=== PATIENT | male | born 2000 | race African-American/Black ===

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

== ENCOUNTER 2021-12-18 15:37 | Emergency (ER) | payer BC ==
--- NOTE | 2021-12-18 16:25 | RAD REPORT ---
EXAM DESCRIPTION: RAD - Knee Right 3 View - 12/18/2021 4:15 pm CLINICAL HISTORY: PAIN COMPARISON: No comparisons FINDINGS: No fracture, dislocation or periosteal reaction.Large joint effusion is present. No joint space narrowing. No foreign body or other soft tissue abnormality. IMPRESSION: Large right joint effusion with no acute bone finding. Clinical concerns for internal derangement or occult bony injury could be further assessed with MR im aging.
--- NOTE | 2021-12-18 16:48 | EDPHYS ---
Physician Documentation [facility] Name: Westley Hutchins Age: 21 yrs Sex: Male : 2000 Arrival Date: 12/18/2021 Time: 15:41 Bed 13 Private MD: ED Physician Leoncio Cheng HPI: 12/18 16:39 This 21 yrs old Black Male presents to ER via Ambulatory with complaints of Knee Pain. kb 16:39 The patient presents with pain, swelling. The complaints affect the right knee. kb Context: The problem was sustained at home, resulted from an unknown cause, the patient can fully bear weight, the patient is able to ambulate. Onset: The symptoms/episode began/occurred last week. Modifying factors: The symptoms are alleviated by nothing. the symptoms are aggravated by weight bearing, bending knee. Associated signs and symptoms: Pertinent positives: swelling, Pertinent negatives calf tenderness, fever, nausea, numbness, rash, tingling, vomiting, warmth, weakness. Treatment prior to arrival includes: no previous treatment. Severity of symptoms: At their worst the symptoms were moderate, in the emergency department the symptoms are unchanged. The patient has not experienced similar symptoms in the past. The patient has not recently seen a physician. Pt reports he had the flu last week with bodyaches, joint pain, malaise, etc. States most symptoms have gone away, but he is still having pain and swelling in right knee. Denies injury or trauma. Denies fever. Historical: - Allergies: 15:56 NKA; mb8 - Home Meds: 15:56 None [Active]; mb8 - PSHx: 15:56 Left arm sx; testicle; mb8 - Immunization history:: Adult Immunizations up to date. - Social history:: Smoking status: Patient reports the use of cigarette tobacco products. ROS: 16:38 Constitutional: Negative for fever, chills, and weight loss. kb 16:38 MS/extremity: Positive for pain, swelling, of the right knee. 16:38 All other systems are negative. Exam: 16:38 Constitutional: This is a well developed, well nourished patient who is awake, alert, kb and in no acute distress. Head/Face: Normocephalic, atraumatic. ENT: Moist Mucous membranes Cardiovascular: Regular rate and rhythm with a normal S1 and S2. No gallops, murmurs, or rubs. No pulse deficits. Respiratory: Respirations even and unlabored. No increased work of breathing. Talking in full sentences Abdomen/GI: Soft, non-tender. No distention Skin: Warm, dry with normal turgor. Normal color. Neuro: Awake and alert, GCS 15, oriented to person, place, time, and situation. Moves all extremities. Normal gait. Psych: Awake, alert, with orientation to person, place and time. Behavior, mood, and affect are within normal limits. 16:38 Musculoskeletal/extremity: Extremities: grossly normal except: noted in the right knee: pain, swelling, ROM: intact in all extremities, Circulation is intact in all extremities. Sensation intact. Weight bearing: able to fully bear weight. Vital Signs: 15:57 BP 125 / 81; Pulse 93; Resp 16; Temp 97.3; Pulse Ox 100% on R/A; Weight 90.26 kg; mb8 Height 6 ft. 1 in. (185.42 cm); Pain 7/10; 15:57 Body Mass Index 26.25 (90.26 kg, 185.42 cm) mb8 MDM: 15:55 Patient medically screened. kb 16:39 Data reviewed: vital signs, nurses notes. Data interpreted: Pulse oximetry: on room air kb is 100 %. Interpretation: normal. Counseling: I had a detailed discussion with the patient and/or guardian regarding: the historical points, exam findings, and any diagnostic results supporting the discharge/admit diagnosis, radiology results, the need for outpatient follow up, a orthopedic surgeon, to return to the emergency department if symptoms worsen or persist or if there are any questions or concerns that arise at home. 12/18 15:56 Order name: Knee Right 3 View XRAY; Complete Time: 16:26 kb Administered Medications: No medications were administered Disposition: 18:10 Co-signature as Attending Physician, Leoncio Cheng MD. rn Disposition Summary: 12/18/21 16:48 Discharge Ordered Location: Home Condition: Stable kb Diagnosis - Effusion, right knee kb Followup: kb - With: Emergency Department - When: As needed - Reason: Worsening of condition Followup: kb - With: Private Physician - When: 2 - 3 days - Reason: Recheck today's complaints, Continuance of care, Re-evaluation by your physician Discharge Instructions: - Discharge Summary Sheet kb - Knee Effusion, [id number] kb Forms: - Medication Reconciliation Form kb - Thank You Letter kb - Antibiotic Education kb - Prescription Opioid Use kb - Work release form bd Prescriptions: - Diclofenac Sodium 75 mg Oral tablet,delayed release (DR/EC) - take 1 tablet by ORAL route 2 times per day As needed; 30 tablet; Refills: 0, kb Product Selection Permitted Signatures: Dispatcher [employer] EDMarylu Eckert, CRM MARKETING ANALYST-C CRM MARKETING ANALYST-Peteb Leoncio Cheng MD MD rn Lewis, Lynsay RN RN ll1 Dwight Mota RN RN mb8
--- NOTE | 2021-12-18 16:48 | ER ---
Nurse's Notes [facility] Name: Westley Hutchins Age: 21 yrs Sex: Male : 2000 Arrival Date: 12/18/2021 Time: 15:41 Bed 13 Private MD: Diagnosis: Effusion, right knee Presentation: 12/18 15:54 Chief complaint: Patient states: last week had the flu and had body aches and joint mb8 pain. Now patient c/o pain and swelling to right knee. Patient is ambulatory. Coronavirus screen: Vaccine status: Patient reports being unvaccinated. Ebola Screen: Patient negative for fever greater than or equal to 101.5 degrees Fahrenheit, and additional compatible Ebola Virus Disease symptoms Patient denies exposure to infectious person. Patient denies travel to an Ebola-affected area in the 21 days before illness onset. Initial Sepsis Screen: Does the patient meet any 2 criteria? No. Patient's initial sepsis screen is negative. Does the patient have a suspected source of infection? No. Patient's initial sepsis screen is negative. Risk Assessment: Do you want to hurt yourself or someone else? Patient reports no desire to harm self or others. Onset of symptoms is unknown. 15:54 Method Of Arrival: Ambulatory mb8 15:54 Acuity: ANGEL 4 mb8 Triage Assessment: 15:56 General: Appears in no apparent distress. Behavior is calm, cooperative, appropriate mb8 for age. Pain: Complains of pain in right knee Pain does not radiate. Pain currently is 7 out of 10 on a pain scale. Quality of pain is described as aching, Pain began 1 week ago. Historical: - Allergies: 15:56 NKA; mb8 - Home Meds: 15:56 None [Active]; mb8 - PSHx: 15:56 Left arm sx; testicle; mb8 - Immunization history:: Adult Immunizations up to date. - Social history:: Smoking status: Patient reports the use of cigarette tobacco products. Screenin:59 Abuse screen: Denies threats or abuse. Nutritional screening: No deficits noted. ll1 Tuberculosis screening: No symptoms or risk factors identified. Fall Risk Total Bush Fall Scale indicates No Risk (0-24 pts). Assessment: 16:52 Reassessment: No changes from previously documented assessment. Patient and/or family ll1 updated on plan of care and expected duration. Pain level reassessed. Patient is alert, oriented x 3, equal unlabored respirations, skin warm/dry/pink. Vital Signs: 15:57 BP 125 / 81; Pulse 93; Resp 16; Temp 97.3; Pulse Ox 100% on R/A; Weight 90.26 kg; mb8 Height 6 ft. 1 in. (185.42 cm); Pain 7/10; 15:57 Body Mass Index 26.25 (90.26 kg, 185.42 cm) mb8 ED Course: 15:41 Patient arrived in ED. mr 15:42 Marylu Alanis FNP-C [facility]. kb 15:42 Leoncio hCeng MD is Attending Physician. kb 15:56 Triage completed. mb8 15:57 Arm band placed on. mb8 15:59 Anjana Ceja, RN is Primary Nurse. ll1 15:59 Patient placed in an exam room, on a stretcher. ll1 15:59 Patient has correct armband on for positive identification. Call light in reach. Side ll1 rails up X 1. Cardiac monitoring not applicable on this patient. 16:17 Knee Right 3 View XRAY In Process Unspecified. EDMS 16:52 No provider procedures requiring assistance completed. Patient did not have IV access ll1 during this emergency room visit. Administered Medications: No medications were administered Medication: 15:59 VIS not applicable for this client. ll1 Outcome: 16:48 Discharge ordered by MD. kb 16:52 Discharged to home ambulatory. ll1 16:52 Condition: stable 16:52 Discharge instructions given to patient, Instructed on discharge instructions, follow up and referral plans. medication usage, Demonstrated understanding of instructions, follow-up care, medications, Prescriptions given X 1. 16:53 Patient left the ED. ll1 Signatures: Dispatcher [employer] EDMS Marylu Aalnis FNP-C FNP-Ckb Amber Smith mr Anjana Ceja, RN RN 1 Dwight Mota RN RN mb8
[2021-12-18 18:18] VITALS: BP 125/81; TEMP 97.3; O2SAT 100
== END 2021-12-18 16:53 | disposition home or self-care (01) ==
LOC: ER 15:37
DX: M25.461 Effusion, right knee (principal); F17.210 Nicotine dependence, cigarettes, uncomplicated
CPT/HCPCS: 99283

== ENCOUNTER 2023-01-18 08:48 | Emergency (ER) | payer SELFPAY ==
--- OUTSIDE RECORDS SUMMARY | 2023-01-18 08:51 | XMS REPORT | Continuity of Care Document ---
Author Name Unknown Address [address] [place] [address]. [address] [place] [address] [employer] Address [address] [place] [address]. [address] [place] [id number] Care Team Providers Care Armament Installer Name Role Phone Unavailable Unavailable Unavailable Encounters Start Date/Time End Date/Time Encounter Type Admission Type Attending Clinicians Care Facility Care Department Encounter ID Source 2021-12-28 10:19:[address] [facility] [id number] [facility]
--- NOTE | 2023-01-18 09:50 | RAD REPORT ---
EXAM DESCRIPTION: RAD - Knee Left 3 View - 01/18/2023 9:38 am CLINICAL HISTORY: Left knee pain FINDINGS: No fracture or dislocation is seen.
--- NOTE | 2023-01-18 10:06 | ER ---
Nurse's Notes [facility] Name: Westley Hutchins Age: 22 yrs Sex: Male : 2000 Arrival Date: 01/18/2023 Time: 08:48 Bed 15 Private MD: Diagnosis: Pain in left knee Presentation: 01/18 08:57 Chief complaint: Patient states: LEFT KNEE PAIN. WAS HIT IN HIS KNEE WHILE PLAYING jj7 BASKETBALL YESTERDAY. JOB SENT HIM INTO GET CHECKED OUT. Coronavirus screen: At this time, the client does not indicate any symptoms associated with coronavirus-19. Ebola Screen: No symptoms or risks identified at this time. Initial Sepsis Screen: Does the patient meet any 2 criteria? No. Patient's initial sepsis screen is negative. Does the patient have a suspected source of infection? No. Patient's initial sepsis screen is negative. Risk Assessment: Do you want to hurt yourself or someone else? Patient reports no desire to harm self or others. Onset of symptoms was January 17, 2023. 08:57 Method Of Arrival: Ambulatory [facility] 08:57 Acuity: ANGEL 4 j7 Triage Assessment: 09:03 General: Appears in no apparent distress. comfortable, Behavior is calm, cooperative, jj7 appropriate for age. Pain: Complains of pain in left knee. Musculoskeletal: Reports pain in left knee. Injury Description: Bruise. Historical: - Allergies: 09:03 NKA; jj7 - PMHx: 09:03 None; jj7 - PSHx: 09:03 Left arm sx; testicle; jj7 - Immunization history:: Adult Immunizations up to date. - Social history:: Smoking status: Reported history of juuling and/or vaping. Patient uses alcohol, occasionally. Patient/guardian denies using street drugs. Screenin:04 [facility] ED Fall Risk Assessment (Adult) History of falling in the last 3 months, [facility] including since admission No falls in past 3 months (0 pts) Confusion or Disorientation No (0 pts) Intoxicated or Sedated No (0 pts) Impaired Gait No (0 pts) Mobility Assist Device Used No (0 pt) Altered Elimination No (0 pt) Score/Fall Risk Level 0 - 2 = Low Risk Oriented to surroundings, Maintained a safe environment. Abuse screen: Denies threats or abuse. Nutritional screening: No deficits noted. Tuberculosis screening: No symptoms or risk factors identified. Assessment: 09:09 Reassessment: See triage assessment. nj1 10:10 Reassessment: Pt not in room. Pt left prior to signing discharge paperwork. Discharge nj1 instructions given verbally earlier by Dr Scott. Vital Signs: 08:57 BP 123 / 65; Pulse 62; Resp 17; Temp 98.1; Pulse Ox 100% ; Weight 85.73 kg; Height 6 j7 ft. 1 in. ; Pain 2/10; 09:45 BP 127 / 86; Pulse 64; Resp 17; Pulse Ox 100% on R/A; nj1 08:57 Body Mass Index 24.94 (85.73 kg, 185.42 cm) j7 08:57 Pain Scale: Adult [facility] ED Course: 08:51 Patient arrived in ED. mg5 09:00 Rodrigo Scott MD is Attending Physician. rt 09:03 Triage completed. j7 09:03 Arm band placed on right wrist. Patient placed in an exam room, on a stretcher. jj7 09:04 Patient has correct armband on for positive identification. Bed in low position. Call [facility] light in reach. 09:09 Rachel Gamble, RN is Primary Nurse. nj1 09:09 Provided Education on: call light, fall precautions. nj1 09:40 Knee Left 3 View XRAY In Process Unspecified. EDMS 10:10 No provider procedures requiring assistance completed. nj1 10:10 Patient did not have IV access during this emergency room visit. nj1 Administered Medications: No medications were administered Medication: 10:28 VIS not applicable for this client. nj1 Outcome: 10:06 Discharge ordered by . rt 10:10 Discharged to home ambulatory, nj1 10:10 Condition: stable 10:10 Discharge instructions given to left prior to signing discharge instructions. 10:28 Patient left the ED. nj1 Signatures: Dispatcher [employer] EDMS Tree Jaeger RN RN Rodrigo Ventura MD MD rt Rachel Gamble, RN RN jesse1 [place] [id number]
--- NOTE | 2023-01-18 10:06 | EDPHYS ---
Physician Documentation [facility] Name: Westley Hutchins Age: 22 yrs Sex: Male : 2000 Arrival Date: 01/18/2023 Time: 08:48 Bed 15 Private MD: ED Physician Rodrigo Scott HPI: 01/18 09:32 This 22 yrs old Black Male presents to ER via Ambulatory with complaints of Knee Injury.rt 09:32 Patient presents to the ED with injury to the left knee. Patient was playing small, rt someone hit his leg causing him to come down awkwardly, he felt a pop. Reports some mild pain to the lateral aspect. Is able to walk without difficulty. Denies other acute complaints, symptoms are mild in severity, aching nature, nonradiating, no other aggravating or alleviating factors.. Historical: - Allergies: 09:03 NKA; jj7 - PMHx: 09:03 None; jj7 - PSHx: 09:03 Left arm sx; testicle; jj7 - Immunization history:: Adult Immunizations up to date. - Social history:: Smoking status: Reported history of juuling and/or vaping. Patient uses alcohol, occasionally. Patient/guardian denies using street drugs. ROS: 09:32 Constitutional: Negative for fever, chills, and weight loss, Cardiovascular: Negative rt for chest pain, palpitations, and edema, Respiratory: Negative for shortness of breath, cough, wheezing, and pleuritic chest pain, Abdomen/GI: Negative for abdominal pain, nausea, vomiting, diarrhea, and constipation, Skin: Negative for injury, rash, and discoloration, Neuro: Negative for headache, weakness, numbness, tingling, and seizure, Psych: Negative for depression, anxiety, suicide ideation, homicidal ideation, and hallucinations, 09:32 MS/extremity: Positive for pain, Negative for decreased range of motion, Exam: 09:32 Constitutional: This is a well developed, well nourished patient who is awake, alert, rt and in no acute distress. Head/Face: Normocephalic, atraumatic. Eyes: Pupils equal round and reactive to light, extra-ocular motions intact. Lids and lashes normal. Conjunctiva and sclera are non-icteric and not injected. Cornea within normal limits. Periorbital areas with no swelling, redness, or edema. Neck: Trachea midline, no thyromegaly or masses palpated, and no cervical lymphadenopathy. Supple, full range of motion without nuchal rigidity, or vertebral point tenderness. No Meningismus. Skin: Warm, dry with normal turgor. Normal color with no rashes, no lesions, and no evidence of cellulitis. Neuro: Awake and alert, GCS 15, oriented to person, place, time, and situation. Cranial nerves II-XII grossly intact. Motor strength 5/5 in all extremities. Sensory grossly intact. Cerebellar exam normal. Normal gait. Psych: Awake, alert, with orientation to person, place and time. Behavior, mood, and affect are within normal limits. 09:32 Musculoskeletal/extremity: Minimal tenderness to the lateral aspect of the knee, no appreciable swelling noted. No other areas of tenderness, full range of motion, anterior drawer negative. Vital Signs: 08:57 BP 123 / 65; Pulse 62; Resp 17; Temp 98.1; Pulse Ox 100% ; Weight 85.73 kg; Height 6 jj7 ft. 1 in. ; Pain 2/10; 09:45 BP 127 / 86; Pulse 64; Resp 17; Pulse Ox 100% on R/A; nj1 08:57 Body Mass Index 24.94 (85.73 kg, 185.42 cm) jj7 08:57 Pain Scale: Adult jj7 MDM: 09:02 Patient medically screened. rt 10:06 Differential diagnosis: Contusion, ligament injury, fracture. Data reviewed: vital rt signs, nurses notes, radiologic studies. Independent interpretation of the following test(s) in the Emergency Department X-Ray: My interpretation is No fracture seen on interpretation of x-ray images. Test considered but Not performed: CT: No knee dislocation require popliteal artery imaging. Counseling: I had a detailed discussion with the patient and/or guardian regarding the historical points, exam findings, and any diagnostic results supporting the discharge/admit diagnosis, radiology results, the need for outpatient follow up, Patient was informed that ligamentous injury has not been ruled out on today's exam. 01/18 09:10 Order name: Knee Left 3 View XRAY; Complete Time: 10:03 rt Administered Medications: No medications were administered Disposition Summary: 01/18/23 10:06 Discharge Ordered Notes: Location: Home rt Problem: new rt Symptoms: have improved rt Condition: Stable rt Diagnosis - Pain in left knee rt Followup: rt - With: Private Physician - When: 5 - 6 days - Reason: Discharge Instructions: - Discharge Summary Sheet rt - Acute Knee Pain, Adult rt Forms: - Work release form eb - Medication Reconciliation Form rt - Thank You Letter rt - Antibiotic Education rt - Prescription Opioid Use rt - Patient Portal Instructions rt - Leadership Thank You Letter rt Signatures: Dispatcher [employer] Tree Rose RN RN jj7 Rodrigo Scott MD MD rt
[2023-01-18 10:49] VITALS: TEMP 98.1; O2SAT 100
[2023-01-18 10:51] VITALS: BP 127/86
== END 2023-01-18 10:28 | disposition home or self-care (01) ==
LOC: ER 08:48
DX: M25.562 Pain in left knee (principal)
CPT/HCPCS: 99282